=== PATIENT | male | born 1985 | race Caucasian/White ===

== ENCOUNTER 2018-04-04 22:21 | Emergency (ER) | payer MEDICAID ==
[~2018-04-04] VITALS: Ht 180.3 cm; Wt 62.5 kg
[~2018-04-04 22:21] MED LIST: DIPH-423 PO; IBUP-1573 PO; NO HOME MEDS
[2018-04-04] MEDS ORDERED: SULF1TAB49 PO (23:36)
[2018-04-04] MEDS ORDERED: IBUP-1984 PO (23:36)
[2018-04-04] MEDS ORDERED: CEPH500C5 PO (23:36)
[2018-04-04 23:50] VITALS: BP 129/65
== END 2018-04-04 23:52 | disposition home or self-care (01) ==
LOC: ER 22:21
DX: L02.211 Cutaneous abscess of abdominal wall (principal); F12.10 Cannabis abuse, uncomplicated
CPT/HCPCS: 99283

== ENCOUNTER 2019-02-19 17:29 | Emergency (ER) | payer MEDICAID, OTHER ==
[~2019-02-19] VITALS: Ht 180.3 cm; Wt 72.7 kg
[~2019-02-19 17:29] MED LIST changes: +CEPH500C5 PO
[2019-02-19 17:34] VITALS: BP 128/71
== END 2019-02-19 19:05 | disposition left against medical advice (07) ==
LOC: ER 17:30
DX: M79.641 Pain in right hand (principal); Z53.21 Procedure and treatment not carried out due to patient leaving prior to being seen by health care provider